=== PATIENT | male | born 1970 | race Caucasian/White ===

== ENCOUNTER 2022-09-29 09:38 | Emergency (ER) | payer OTHER ==
[~2022-09-29 09:38] MED LIST: Iopamidol-370 76% 500 ML MDV (1 ML CHARGE) ONE
[2022-09-29 10:12] LABS: #Eosinphils 0.1 thou/uL (0.0-0.7); #Monocytes 0.6 thou/uL (0.11-0.59); #Neutrophils 2.6 thou/uL (1.40-6.50); %Basophils 0.5 % (0.0-1.0); %Eosinophils 2.8 % (0.0-10.0); %Lymphocytes 20.6 % (21.0-51.0); %Neutrophils 60.9 % (42.0-75.0); Hemoglobin 13.9 g/dL (14.0-18.0); Mean Corpuscular HGB CONC 34.4 g/dL (32.0-36.0); Mean Corpuscular Hemoglobin 33.6 pg (27.0-31.0); Mean Corpuscular Volume 97.6 fl (78.0-98.0); Mean Platelet Volume 9.3 fL (7.4-10.4); Platelet Count 330 10x3/uL (130-400); RBC Distribution Width 12.3 % (11.5-14.5); Red Blood Cell (RBC) Count 4.14 mill/uL (4.70-6.10); White Blood Cell (WBC) Count 4.3 10x3/uL (4.8-10.8)
[2022-09-29 10:46] LABS: ALT (SGPT) 34 U/L (8-55); AST (SGOT) 36 U/L (5-34); Albumin 3.8 g/dL (3.5-5.0); Alkaline Phosphatase 87 U/L (40-110); Anion Gap 9 mmol/L (10-20); BUN (Urea Nitrogen) 17 mg/dL (8.4-25.7); Bilirubin, Total 0.6 mg/dL (0.2-1.2); Calc. Creatinine Clearance 0 mL/min (70-130); Calcium 9.3 mg/dL (7.8-10.44); Carbon Dioxide 28 mmol/L (22-29); Chloride 103 mmol/L (98-107); Estimated GFR 108; Globulin 3.2 g/dL (2.4-3.5); Glucose 82 mg/dL (70-105); Lipase 28 U/L (8-78); Potassium 3.7 mmol/L (3.5-5.1); Sodium 136 mmol/L (136-145)
[2022-09-29 11:14] LABS: Bacteria/HPF None Seen HPF (None Seen); Bilirubin Negative (Negative); Blood, Urine 2+ (Negative); CAUTI Indications for Culture Pelvic or flank pain; Clarity Clear (Clear); Glucose, Urine (Dipstick) Normal (Negative); Ketone, Urine Negative (Negative); Leukocyte Negative Leu/uL (Negative); Nitrite Negative (Negative); Protein, Urine (Dipstick) 50 mg/dL (Neg-Trace); Specific Gravity, Urine 1.037 (1.002-1.036); Squamous Epithelial 0-3 HPF (0-3)
[2022-09-29 11:16] LABS: Urine Culture Reflex No No
[2022-09-29] MEDS ORDERED: Ondansetron PF 4 MG/2 ML Vial ONE (12:39)
[2022-09-29] MEDS ORDERED: Morphine 4 MG/ML VIAL ONE ×2 (12:39→19:53)
[2022-09-29] MEDS ORDERED: Clindamycin/D5W 300 MG/50 ML BAG ONE (12:57)
[2022-09-29] MEDS ORDERED: Piperacillin/Tazobactam 4.5 GM VIAL ONE (12:57)
[2022-09-29] MEDS ORDERED: Clindamycin/D5W 600 mg/50 ml Premix Bag ONE (12:57)
[2022-09-29 15:39] LABS: INR-International Normal Ratio 1.1; PTT 26.2 sec (22.9-36.1); Prothrombin Time 14.8 sec (12.0-14.7)
[2022-09-29] MEDS ORDERED: Heparin 10,000 UNITS/ 10 ML VIAL ONE (16:11)
[2022-09-29] MEDS ORDERED: Heparin 25,000 units/D5W 500 ML ONE (16:11)
== END 2022-09-29 19:59 | disposition short-term general hospital (02) ==
LOC: ERS 09:38
DX: K55.059 Acute (reversible) ischemia of intestine, part and extent unspecified (principal); I80.9 Phlebitis and thrombophlebitis of unspecified site; D72.819 Decreased white blood cell count, unspecified; I10 Essential (primary) hypertension; F17.220 Nicotine dependence, chewing tobacco, uncomplicated
CPT/HCPCS: 36415; 74177; 76705; 76870; 80053; 81001; 83605; 83690; 84484; 85025; 85610; 85730; 87040; 93005; 93976; 96361; 96365; 96366; 96367; 96375; 96376; J1644; J2270; J2405; J2543; J3490; Q9967